=== PATIENT | male | born 1960 | race Caucasian/White ===

== ENCOUNTER 2017-06-26 11:31 | Inpatient (IN) | payer MEDICAID ==
[~2017-06-26] VITALS: Ht 162.6 cm; Wt 65.4 kg
[~2017-06-26 11:31] MED LIST: ATI1T PO; CLIN-80 PO; GUAI120015 PO; HYDR1TAB PO; IBUP-1051 PO; IBUP-1986 PO; IBUP-812 PO; METH-360 PO; NAPR-56 PO; NO HOME MEDS; PERM60CR19 TP
[2017-06-26] MEDS ORDERED: ondansetron/PF 4mg/2ml inj IV ONE (11:50)
[2017-06-26] MEDS ORDERED: normal saline 1000ML IV soln IV ONE (11:50)
[2017-06-26 11:56] LABS: BASOPHILS # (AUTO) 0.1 X10'3 (0-0.2); BASOPHILS % (AUTO) 0.8 % (0-1); EOSINOPHILS # (AUTO) 0.4 X10'3 (0-0.9); EOSINOPHILS % (AUTO) 2.5 % (0-6); HEMATOCRIT 42.2 % (42.0-52.0); HEMOGLOBIN 14.5 g/dl (14.0-17.9); LYMPHOCYTES # (AUTO) 2.2 X10'3 (1.1-4.8); MEAN CORPUSCULAR HGB CONC 34.4 % (33.0-36.5); MEAN CORPUSCULAR VOLUME 96.1 FL (78-98); MONOCYTES # (AUTO) 1.2 X10'3 (0-0.9); MONOCYTES % (AUTO) 6.9 % (2-12); NEUTROPHILS # (AUTO) 13.1 X10'3 (1.8-7.7); NEUTROPHILS % (AUTO) 76.8 % (42-75); PLATELET COUNT 808 X10'3 (140-440); RED BLOOD COUNT 4.39 X10'6 (4.70-6.10); RED CELL DISTRIBUTION WIDTH 13.4 % (11.5-14.5); WHITE BLOOD COUNT 17.1 X10'3 (4.5-11.0)
[2017-06-26 12:07] LABS: PARTIAL THROMBOPLASTIN TIME 31 SECONDS (22-32); PROTHROMBIN TIME 10.7 SECONDS (9.0-12.0)
[2017-06-26 12:11] LABS: ALANINE AMINOTRANSFERASE 49 U/L (12-78); ALBUMIN 2.7 G/DL (3.4-5.0); ALBUMIN/GLOBULIN RATIO 0.5 (1.1-1.5); ALKALINE PHOSPHATASE 92 IU/L (46-116); ANION GAP 5 (8-16); ASPARTATE AMINO TRANSFERASE 21 U/L (10-37); BILIRUBIN,TOTAL 0.4 MG/DL (0.1-1.0); BLOOD UREA NITROGEN 15 MG/DL (7-18); CALCIUM 9.3 MG/DL (8.5-10.1); CHLORIDE 97 MMOL/L (99-107); CREATININE 0.75 MG/DL (0.60-1.10); GLUCOSE 92 MG/DL (70-104); POTASSIUM 3.9 MMOL/L (3.5-5.1); SODIUM 131 MMOL/L (135-145); TOTAL CARBON DIOXIDE 28.6 MMOL/L (24-32); TOTAL PROTEIN 8.6 G/DL (6.4-8.2); eGFR > 90 ML/MIN
[2017-06-26] MEDS ORDERED: ipratropium/albuterol 3ml nebule NEB ONE (12:15)
[2017-06-26] MEDS ORDERED: methylPREDNISolone sod succ 125mg/2ml vial IV ONE (12:15)
[2017-06-26 12:25] LABS: LIPASE 67 U/L (73-393)
[2017-06-26 12:28] LABS: PLATELET ESTIMATE INCREASED; TOTAL CELLS COUNTED 100
[2017-06-26 12:30] LABS: TOXIC GRANULATION 3+; TOXIC VACUOLATION 2+
[2017-06-26] MEDS ORDERED: CefTRIAXone 2gm/NS 100ml IVPB 100 ML IV ONE (13:25)
[2017-06-26] MEDS ORDERED: azithromycin/NS 500mg/250ml 250 ML IV ONE (13:35)
[2017-06-26] MEDS ORDERED: HYDROcodone/acetaminophen 10/325mg tab PO PRN (13:45)
[2017-06-26] MEDS ORDERED: bisacodyl 10mg suppository rectal RC PRN (13:45)
[2017-06-26] MEDS ORDERED: mag hydrox/Alum hydrox/simeth 30ml oral suspension PO PRN (13:45)
[2017-06-26] MEDS ORDERED: diphenhydrAMINE 50 mg/ml inj IV PRN (13:45)
[2017-06-26] MEDS ORDERED: diphenhydrAMINE 25mg capsule PO PRN (13:45)
[2017-06-26] MEDS ORDERED: HYDROcodone/acetaminophen 5mg/325mg tablet PO PRN (13:45)
[2017-06-26] MEDS ORDERED: Permethrin Cream 60gm TP ONE (13:45)
[2017-06-26] MEDS ORDERED: ondansetron/PF 4mg/2ml inj IV PRN (13:45)
[2017-06-26] MEDS ORDERED: metoclopramide 5 mg/ml inj IV PRN (13:45)
[2017-06-26] MEDS ORDERED: nicotine 14mg patch - 24hr TD ONE (13:45)
[2017-06-26] MEDS ORDERED: HYDROmorphone 1 mg/ml syringe IV PRN ×2 (13:45)
[2017-06-26] MEDS ORDERED: LORazepam 1 MG tablet PO PRN (13:45)
[2017-06-26] MEDS ORDERED: acetaminophen 325mg tablet PO PRN ×2 (13:45)
[2017-06-26] MEDS ORDERED: magnesium hydroxide 30ml (MOM) UD suspension PO PRN (13:45)
[2017-06-26] MEDS ORDERED: HYDROcodone/acetaminophen 5mg/325mg tablet PO SCH (14:00)
[2017-06-26] MEDS ORDERED: ACETAMINOPHEN PO SCH ×2 (14:00)
[2017-06-26] MEDS ORDERED: HYDROCODONE PO SCH ×2 (14:00)
[2017-06-26] MEDS: normal saline 1000ml 1,000 ML IV SCH ×2 (14:15→23:20)
[2017-06-26 14:43] LABS: MAGNESIUM 2.2 MG/DL (1.5-2.4); PHOSPHORUS 3.2 MG/DL (2.3-4.5)
[2017-06-26 15:54] LABS: CLARITY,URINE Clear (Clear); COLOR,URINE Yellow (Yellow); GLUCOSE, URINE Negative (Neg); KETONES,URINE 15 mg/dl (Neg); LEUKOCYTE ESTERASE ,URINE Negative (Neg); NITRITES, URINE Negative (Neg); OCCULT BLOOD,URINE Negative (Neg); PROTEIN,URINE Negative (Neg)
[2017-06-26 16:02] LABS: UA COLLECTION TYPE CLN CATCH MIDSTREAM
[2017-06-26 16:04] LABS: URINE AMPHETAMINE SCREEN POSITIVE (Neg); URINE BARBITUATE SCREEN NEGATIVE (Neg); URINE BENZODIAZEPINES SCREEN NEGATIVE (Neg); URINE CANNABINOID SCREEN POSITIVE (Neg); URINE COCAINE SCREEN NEGATIVE (Neg); URINE METHADONE SCREEN NEGATIVE (Neg); URINE OPIATE SCREEN POSITIVE (Neg); URINE PHENCYCLIDINE SCREEN NEGATIVE (Neg)
[2017-06-26 16:30] VITALS: BP 102/66
[2017-06-26 18:40] VITALS: BP 109/61
[2017-06-26] MEDS: heparin, porcine 5000 units/ml vial SQ SCH (20:00)
[2017-06-26] MEDS: methylPREDNISolone sod succ 125mg/2ml vial IV SCH (20:06)
[2017-06-26] MEDS: cefTRIAXone 1g/NS 100ml IVPB 100 ML IV SCH (20:07)
[2017-06-26] MEDS: docusate sod 100mg capsule PO SCH (20:07)
[2017-06-26] MEDS ORDERED: temazepam 15mg capsule PO PRN (21:00)
[2017-06-26] MEDS ORDERED: METHOCARBAMOL PO SCH (21:00)
[2017-06-26] MEDS: cyclobenzaprine 10mg tablet PO SCH (22:45)
[2017-06-27] VITALS: BP 98/57
[2017-06-27 05:16] LABS: BASOPHILS % (AUTO) 0.3 % (0-1); EOSINOPHILS # (AUTO) 0.2 X10'3 (0-0.9); EOSINOPHILS % (AUTO) 1.4 % (0-6); HEMATOCRIT 40.3 % (42.0-52.0); HEMOGLOBIN 13.7 g/dl (14.0-17.9); LYMPHOCYTES # (AUTO) 1.7 X10'3 (1.1-4.8); LYMPHOCYTES % (AUTO) 13.7 % (21-51); MEAN CORPUSCULAR HEMOGLOBIN 33.1 PG (27.0-31.0); MEAN CORPUSCULAR VOLUME 97.4 FL (78-98); MEAN PLATELET VOLUME 6.4 FL (7.4-10.4); MONOCYTES # (AUTO) 0.2 X10'3 (0-0.9); MONOCYTES % (AUTO) 1.9 % (2-12); NEUTROPHILS # (AUTO) 10.2 X10'3 (1.8-7.7); NEUTROPHILS % (AUTO) 82.7 % (42-75); PLATELET COUNT 820 X10'3 (140-440); RED BLOOD COUNT 4.14 X10'6 (4.70-6.10); RED CELL DISTRIBUTION WIDTH 13.6 % (11.5-14.5); WHITE BLOOD COUNT 12.3 X10'3 (4.5-11.0)
[2017-06-27 05:39] LABS: ALANINE AMINOTRANSFERASE 39 U/L (12-78); ALBUMIN 2.2 G/DL (3.4-5.0); ALBUMIN/GLOBULIN RATIO 0.4 (1.1-1.5); ALKALINE PHOSPHATASE 78 IU/L (46-116); ANION GAP 6 (8-16); ASPARTATE AMINO TRANSFERASE 13 U/L (10-37); BILIRUBIN,TOTAL 0.2 MG/DL (0.1-1.0); BLOOD UREA NITROGEN 13 MG/DL (7-18); BUN/CREATININE RATIO 16.9 (5.4-32.0); CALCIUM 8.9 MG/DL (8.5-10.1); CHLORIDE 104 MMOL/L (99-107); CREATININE 0.77 MG/DL (0.60-1.10); GLUCOSE 158 MG/DL (70-104); POTASSIUM 4.6 MMOL/L (3.5-5.1); SODIUM 139 MMOL/L (135-145); TOTAL CARBON DIOXIDE 29.1 MMOL/L (24-32); TOTAL PROTEIN 7.3 G/DL (6.4-8.2); eGFR > 90 ML/MIN
[2017-06-27 07:00] VITALS: BP 99/56
[2017-06-27] MEDS: heparin, porcine 5000 units/ml vial SQ SCH ×2 (08:00→20:00)
[2017-06-27] MEDS: cyclobenzaprine 10mg tablet PO SCH ×3 (08:36→20:49)
[2017-06-27] MEDS: azithromycin 250mg tablet PO SCH (08:36)
[2017-06-27] MEDS: methylPREDNISolone sod succ 125mg/2ml vial IV SCH ×2 (08:36→20:48)
[2017-06-27] MEDS: cefTRIAXone 1g/NS 100ml IVPB 100 ML IV SCH ×2 (08:36→20:48)
[2017-06-27] MEDS: docusate sod 100mg capsule PO SCH ×2 (08:37→20:49)
[2017-06-27] MEDS: pantoprazole 40mg Tablet.DR PO SCH (08:38)
[2017-06-27] MEDS: normal saline 1000ml 1,000 ML IV SCH ×2 (09:45→13:50)
[2017-06-27] MEDS ORDERED: pneumococcal 23-VAL P-sac vacc 25 mcg/0.5ml vial IMVAC ONE (10:00)
[2017-06-27] MEDS: nicotine 21mg patch - 24 hr TD SCH (12:12)
[2017-06-27] MEDS ORDERED: normal saline 1000ml 1,000 ML IVB ONE (12:21)
[2017-06-27 12:41] VITALS: BP 107/58
[2017-06-27 18:40] VITALS: BP 118/70
[2017-06-28] VITALS: BP 113/70
[2017-06-28] MEDS: normal saline 1000ml 1,000 ML IV SCH ×2 (00:15→15:45)
[2017-06-28 05:30] LABS: BASOPHILS # (AUTO) 0.1 X10'3 (0-0.2); BASOPHILS % (AUTO) 0.5 % (0-1); EOSINOPHILS # (AUTO) 0.3 X10'3 (0-0.9); EOSINOPHILS % (AUTO) 1.9 % (0-6); HEMATOCRIT 36.8 % (42.0-52.0); HEMOGLOBIN 12.5 g/dl (14.0-17.9); LYMPHOCYTES # (AUTO) 1.5 X10'3 (1.1-4.8); LYMPHOCYTES % (AUTO) 8.2 % (21-51); MEAN CORPUSCULAR HEMOGLOBIN 33.2 PG (27.0-31.0); MEAN CORPUSCULAR HGB CONC 33.9 % (33.0-36.5); MEAN CORPUSCULAR VOLUME 97.9 FL (78-98); MEAN PLATELET VOLUME 6.5 FL (7.4-10.4); MONOCYTES # (AUTO) 0.5 X10'3 (0-0.9); NEUTROPHILS # (AUTO) 15.9 X10'3 (1.8-7.7); NEUTROPHILS % (AUTO) 86.4 % (42-75); PLATELET COUNT 847 X10'3 (140-440); RED BLOOD COUNT 3.76 X10'6 (4.70-6.10); RED CELL DISTRIBUTION WIDTH 13.4 % (11.5-14.5); WHITE BLOOD COUNT 18.4 X10'3 (4.5-11.0)
[2017-06-28 05:46] LABS: ALANINE AMINOTRANSFERASE 71 U/L (12-78); ALBUMIN 2.2 G/DL (3.4-5.0); ALBUMIN/GLOBULIN RATIO 0.5 (1.1-1.5); ALKALINE PHOSPHATASE 79 IU/L (46-116); ANION GAP 3 (8-16); ASPARTATE AMINO TRANSFERASE 35 U/L (10-37); BILIRUBIN,TOTAL 0.1 MG/DL (0.1-1.0); BLOOD UREA NITROGEN 13 MG/DL (7-18); BUN/CREATININE RATIO 18.6 (5.4-32.0); CALCIUM 8.8 MG/DL (8.5-10.1); CHLORIDE 106 MMOL/L (99-107); GLUCOSE 127 MG/DL (70-104); POTASSIUM 4.1 MMOL/L (3.5-5.1); SODIUM 140 MMOL/L (135-145); TOTAL PROTEIN 6.8 G/DL (6.4-8.2); eGFR > 90 ML/MIN
[2017-06-28 07:02] VITALS: BP 128/68
[2017-06-28] MEDS ORDERED: LACTOBACILLUS RHAMNOSUS GG 15 billion unit sprinkle caps PO SCH (07:30)
[2017-06-28] MEDS: docusate sod 100mg capsule PO SCH (08:23)
[2017-06-28] MEDS: cyclobenzaprine 10mg tablet PO SCH ×2 (08:23→13:28)
[2017-06-28] MEDS: methylPREDNISolone sod succ 125mg/2ml vial IV SCH (08:23)
[2017-06-28] MEDS: cefTRIAXone 1g/NS 100ml IVPB 100 ML IV SCH (08:23)
[2017-06-28] MEDS: azithromycin 250mg tablet PO SCH (08:24)
[2017-06-28] MEDS: pantoprazole 40mg Tablet.DR PO SCH (08:24)
[2017-06-28] MEDS: heparin, porcine 5000 units/ml vial SQ SCH (08:25)
[2017-06-28] MEDS: nicotine 21mg patch - 24 hr TD SCH (08:25)
[2017-06-28] MEDS ORDERED: AZIT-63 PO (17:25)
[2017-06-28] MEDS ORDERED: MAGN400O6 PO (17:28)
[2017-06-28] MEDS ORDERED: PANT40TA4 PO (17:28)
[2017-06-28] MEDS ORDERED: COL100C PO (17:28)
== END 2017-06-28 18:10 | disposition home or self-care (01) | DRG 140 ==
LOC: ER 11:32 → ED HOLD 13:45 → SUR 3N 16:42
PROVIDERS: ADMIT Family Medicine; ATTEND Family Medicine
DX: J44.1 Chronic obstructive pulmonary disease with (acute) exacerbation (principal); J18.9 Pneumonia, unspecified organism; J44.0 Chronic obstructive pulmonary disease with (acute) lower respiratory infection; E87.1 Hypo-osmolality and hyponatremia; K31.9 Disease of stomach and duodenum, unspecified; F12.10 Cannabis abuse, uncomplicated; F17.209 Nicotine dependence, unspecified, with unspecified nicotine-induced disorders; F15.10 Other stimulant abuse, uncomplicated; E86.0 Dehydration; I95.1 Orthostatic hypotension; Z56.0 Unemployment, unspecified; Z59.0 Homelessness; Z79.899 Other long term (current) drug therapy
CPT/HCPCS: 36415; 71045; 74176; 80053; 80305; 81003; 83605; 83690; 83735; 83880; 84100; 84443; 84484; 85025; 85610; 85730; 87040; 87070; 87502; 87503; 94640; 94760; 96361; 96374; 96375; 99285; J0456; J0696; J1170; J1644; J2270; J2405; J2930; J7030

== ENCOUNTER 2018-05-23 23:59 | Emergency (ER) | payer MEDICAID ==
[~2018-05-23] VITALS: Ht 167.6 cm; Wt 70.0 kg
[~2018-05-23 23:59] MED LIST changes: -ATI1T PO; -CLIN-80 PO; +CLIN300C85 PO; +COL100C PO; -GUAI120015 PO; -HYDR1TAB PO; -IBUP-1051 PO; -IBUP-1986 PO; +MAGN400O6 PO; -METH-360 PO; -NAPR-56 PO; -NO HOME MEDS; +PANT40TA4 PO; -PERM60CR19 TP
[2018-05-24 00:06] VITALS: BP 118/72
== END 2018-05-24 00:31 ==
LOC: ER 05-24
DX: S01.21XA Laceration without foreign body of nose, initial encounter (principal); F10.129 Alcohol abuse with intoxication, unspecified; Y90.9 Presence of alcohol in blood, level not specified; J45.909 Unspecified asthma, uncomplicated; Z79.2 Long term (current) use of antibiotics; Z79.899 Other long term (current) drug therapy; Z59.0 Homelessness; Z56.0 Unemployment, unspecified; W45.8XXA Other foreign body or object entering through skin, initial encounter; Y93.89 Activity, other specified; Y92.89 Other specified places as the place of occurrence of the external cause; Y99.8 Other external cause status
CPT/HCPCS: 12011; 99283

== ENCOUNTER 2019-04-16 10:24 | Emergency (ER) | payer MEDICAID, OTHER ==
[~2019-04-16] VITALS: Ht 165.1 cm; Wt 63.0 kg
[~2019-04-16 10:24] MED LIST changes: +CLIN-96 PO; -CLIN300C85 PO
[2019-04-16 10:46] VITALS: BP 119/71
[2019-04-16] MEDS ORDERED: ketorolac tromethamine 15mg/ml inj. IM ONE (12:45)
[2019-04-16] MEDS ORDERED: orphenadrine citrate 60mg/2ml inj. IM ONE (12:45)
[2019-04-16] MEDS ORDERED: METH-360 PO (12:52)
[2019-04-16] MEDS ORDERED: NAPR-56 PO (12:52)
== END 2019-04-16 13:14 | disposition home or self-care (01) ==
LOC: ER 10:26
DX: M54.5 Low back pain (principal); J45.909 Unspecified asthma, uncomplicated; G89.29 Other chronic pain; F17.200 Nicotine dependence, unspecified, uncomplicated; F10.10 Alcohol abuse, uncomplicated; Z56.0 Unemployment, unspecified; Z59.0 Homelessness; Z98.890 Other specified postprocedural states; X50.1XXA Overexertion from prolonged static or awkward postures, initial encounter; Y93.89 Activity, other specified; Y92.89 Other specified places as the place of occurrence of the external cause; Y99.8 Other external cause status; Y90.9 Presence of alcohol in blood, level not specified
CPT/HCPCS: 96372; 99283; J1885; J2360

== ENCOUNTER 2020-01-26 01:39 | Emergency (ER) | payer MEDICAID ==
[~2020-01-26] VITALS: Ht 167.6 cm; Wt 70.5 kg
[~2020-01-26 01:39] MED LIST changes: -CLIN-96 PO; +CLIN-97 PO; +METH-360 PO
[2020-01-26 01:43] VITALS: BP 151/82
[2020-01-26] MEDS ORDERED: PRED20TA PO (02:09)
== END 2020-01-26 02:23 | disposition home or self-care (01) ==
LOC: ER 01:40
DX: R21 Rash and other nonspecific skin eruption (principal); J45.909 Unspecified asthma, uncomplicated; G89.29 Other chronic pain; F15.90 Other stimulant use, unspecified, uncomplicated; Z59.0 Homelessness; Z56.0 Unemployment, unspecified; Z98.890 Other specified postprocedural states; Z79.899 Other long term (current) drug therapy
CPT/HCPCS: 99283

== ENCOUNTER → 2022-03-23 | Emergency (ER) | payer MEDICAID ==
[~2022-03-23] VITALS: Ht 160 cm; Wt 65.9 kg
[~2022-03-23] MED LIST changes: +AMOX-117 PO; +NAPR-56 PO; -PANT40TA4 PO; +PANT40TA54 PO; +acetaminophen 325mg tablet PO ONE; +ibuprofen tablet 400 MG TABLET PO ONE
[2022-03-23 14:19] VITALS: BP 112/60
== END | disposition home or self-care (01) ==
LOC: ER 13:30
DX: H66.91 Otitis media, unspecified, right ear (principal); H92.01 Otalgia, right ear; J02.9 Acute pharyngitis, unspecified; J45.909 Unspecified asthma, uncomplicated; G89.29 Other chronic pain; F15.90 Other stimulant use, unspecified, uncomplicated; Z98.890 Other specified postprocedural states; Z72.89 Other problems related to lifestyle; Z56.0 Unemployment, unspecified; Z59.00 Homelessness unspecified; Z79.2 Long term (current) use of antibiotics; Z79.899 Other long term (current) drug therapy
CPT/HCPCS: 99283

== ENCOUNTER 2022-04-05 15:19 | Emergency (ER) | payer MEDICAID ==
[~2022-04-05] VITALS: Ht 157.5 cm; Wt 66.4 kg
[~2022-04-05 15:19] MED LIST changes: -AMOX-117 PO; -acetaminophen 325mg tablet PO ONE; -ibuprofen tablet 400 MG TABLET PO ONE
[2022-04-05 15:24] VITALS: BP 91/64
[2022-04-05] MEDS ORDERED: ibuprofen tablet 400 MG TABLET PO ONE (17:00)
[2022-04-05] MEDS ORDERED: Cipro HC otic suspension 10ML bottle RIGHT EAR ONE (20:00)
== END 2022-04-05 17:23 | disposition home or self-care (01) ==
LOC: ER 15:20
DX: H60.501 Unspecified acute noninfective otitis externa, right ear (principal); G89.29 Other chronic pain; M54.9 Dorsalgia, unspecified; J45.909 Unspecified asthma, uncomplicated; F15.10 Other stimulant abuse, uncomplicated; Z59.00 Homelessness unspecified; Z56.0 Unemployment, unspecified; Z79.899 Other long term (current) drug therapy; Z79.2 Long term (current) use of antibiotics
CPT/HCPCS: 99283

== ENCOUNTER 2022-04-07 18:06 | Emergency (ER) | payer MEDICAID ==
[~2022-04-07] VITALS: Ht 160 cm; Wt 6.6 kg
[2022-04-07 18:09] VITALS: BP 138/70
[2022-04-07 18:40] LABS: EOSINOPHILS # (AUTO) 0.5 X10'3 (0-0.9); EOSINOPHILS % (AUTO) 3.9 % (0-6); LYMPHOCYTES # (AUTO) 2.5 X10'3 (1.1-4.8); MONOCYTES # (AUTO) 0.8 X10'3 (0-0.9); RED CELL DISTRIBUTION WIDTH 13.8 % (11.5-14.5)
[2022-04-07 18:41] LABS: BASOPHILS # (AUTO) 0.1 X10'3 (0-0.2); BASOPHILS % (AUTO) 1.1 % (0-1); HEMATOCRIT 34.1 % (42.0-52.0); HEMOGLOBIN 11.8 g/dl (14.0-17.9); LYMPHOCYTES % (AUTO) 20.4 % (21-51); MEAN CORPUSCULAR HEMOGLOBIN 32.5 PG (27.0-31.0); MEAN CORPUSCULAR HGB CONC 34.6 g/dL (33.0-36.5); MEAN CORPUSCULAR VOLUME 94.1 FL (78-98); MEAN PLATELET VOLUME 5.9 FL (7.4-10.4); MONOCYTES % (AUTO) 6.9 % (2-12); NEUTROPHILS # (AUTO) 8.2 X10'3 (1.8-7.7); NEUTROPHILS % (AUTO) 67.7 % (42-75); PLATELET COUNT 868 X10'3 (140-440); RED BLOOD COUNT 3.63 X10'6 (4.70-6.10); WHITE BLOOD COUNT 12.2 X10'3 (4.5-11.0)
[2022-04-07 18:54] LABS: ALANINE AMINOTRANSFERASE 27 U/L (12-78); ALBUMIN 2.8 G/DL (3.4-5.0); ALBUMIN/GLOBULIN RATIO 0.6 (1.1-1.5); ALKALINE PHOSPHATASE 87 IU/L (46-116); ANION GAP 8 (8-16); ASPARTATE AMINO TRANSFERASE 18 U/L (10-37); BILIRUBIN,TOTAL 0.2 MG/DL (0.1-1.0); BLOOD UREA NITROGEN 10 MG/DL (7-18); BUN/CREATININE RATIO 14.5 (5.4-32.0); CALCIUM 9.6 MG/DL (8.5-10.1); CHLORIDE 98 MMOL/L (99-107); CREATININE 0.69 MG/DL (0.60-1.10); GLUCOSE 137 MG/DL (70-104); POTASSIUM 3.8 MMOL/L (3.5-5.1); SODIUM 136 MMOL/L (135-145); TOTAL CARBON DIOXIDE 29.9 MMOL/L (24-32); TOTAL PROTEIN 7.7 G/DL (6.4-8.2); eGFR > 90 ML/MIN
--- NOTE | 2022-04-07 19:45 | NUR ---
PT IS RESTING QUIETLY ON GURNEY, HAS BEEN EVALUATED BY PROVIDER, PT C/O LUQ ABD PAIN RADIATING TO LEFT LOWER CHEST "SHARP", STARTED AT 0800 TODAY, +NAUSEA, NO VOMITING, PT ADMITS TO USING "VERY SMALL AMOUNT"METH 2 DAYS AGO, DRINKS 2-3 BEERS A DAY "BUT I HAVE CUT DOWN THIS LAST MONTH", SMOKED MARIJUANA AND CIGARETTES,
[2022-04-07] MEDS ORDERED: azithromycin 250mg tablet PO ONE (19:50)
[2022-04-07] MEDS ORDERED: AZIT-83 PO (19:52)
[2022-04-07] MEDS ORDERED: DOXY100C76 PO (19:52)
[2022-04-07] MEDS ORDERED: DOXYCYCLINE 100MG CAPSULE PO STA (19:56)
--- NOTE | 2022-04-07 20:13 | NUR ---
PO MED X2 GIVEN
== END 2022-04-07 20:14 | disposition home or self-care (01) ==
LOC: ER 18:07
DX: J18.9 Pneumonia, unspecified organism (principal); R10.12 Left upper quadrant pain; R07.89 Other chest pain; R06.02 Shortness of breath; J45.909 Unspecified asthma, uncomplicated; G89.29 Other chronic pain; F15.90 Other stimulant use, unspecified, uncomplicated; Z98.890 Other specified postprocedural states; Z72.89 Other problems related to lifestyle; Z56.0 Unemployment, unspecified; Z59.00 Homelessness unspecified
CPT/HCPCS: 36415; 71045; 80053; 83880; 84484; 85025; 93005; 99285

== ENCOUNTER 2022-07-02 14:56 | Emergency (ER) | payer MEDICAID ==
[~2022-07-02] VITALS: Ht 160 cm; Wt 51.0 kg
[~2022-07-02 14:56] MED LIST changes: -NAPR-56 PO
[2022-07-02] MEDS ORDERED: acetaminophen 325mg tablet PO ONE (15:05)
--- NOTE | 2022-07-02 16:45 | NUR ---
TEMP REDUCTION NOTED TO CHART VS. PT LAYING IN POSITION OF COMFORT. RESP EVEN UNLABORED.
[2022-07-02] MEDS ORDERED: azithromycin 250mg tablet PO ONE (17:35)
[2022-07-02] MEDS ORDERED: AZIT-31 PO ×3 (17:44→18:02)
[2022-07-02] MEDS ORDERED: NEOM10DR45 RIGHT EAR ×3 (17:44→18:02)
[2022-07-02 17:49] VITALS: BP 101/59
== END 2022-07-02 18:05 | disposition home or self-care (01) ==
LOC: ER 14:57
DX: J06.9 Acute upper respiratory infection, unspecified (principal); H60.91 Unspecified otitis externa, right ear; J45.909 Unspecified asthma, uncomplicated; G89.29 Other chronic pain; M54.50 Low back pain, unspecified; F15.20 Other stimulant dependence, uncomplicated; Z56.0 Unemployment, unspecified; Z59.00 Homelessness unspecified
CPT/HCPCS: 71045; 99283

== ENCOUNTER 2022-10-20 19:15 | Emergency (ER) | payer MEDICAID ==
[~2022-10-20] VITALS: Ht 165.1 cm; Wt 75.0 kg
[~2022-10-20 19:15] MED LIST changes: +AZIT-31 PO; +NEOM10DR45 RIGHT EAR
--- NOTE | 2022-10-20 19:28 | NUR ---
,ohlfs at bedside assessing patient, patient placed on 2l nc of oxygen due to destat to low 90%'s
--- NOTE | 2022-10-20 19:57 | NUR ---
provided patient 2 sandwiches and water patient no need for o2 nc saturation 96% on ra
[2022-10-20 20:02] VITALS: BP 150/82
[2022-10-20] MEDS ORDERED: NEOM10DR45 RIGHT EAR (20:23)
== END 2022-10-20 20:39 | disposition home or self-care (01) ==
LOC: ER 19:16
DX: F10.129 Alcohol abuse with intoxication, unspecified (principal); H60.91 Unspecified otitis externa, right ear; J45.909 Unspecified asthma, uncomplicated; F15.20 Other stimulant dependence, uncomplicated; Z59.00 Homelessness unspecified; Z56.0 Unemployment, unspecified; Y90.9 Presence of alcohol in blood, level not specified
CPT/HCPCS: 71045; 93005; 99283

== ENCOUNTER 2022-10-30 02:47 | Emergency (ER) | payer MEDICAID ==
[~2022-10-30] VITALS: Ht 167.6 cm; Wt 58.3 kg
[2022-10-30] MEDS ORDERED: buprenorphine/naloxone 8MG-2MG SUBlingual film SL SCH (04:55)
[2022-10-30] MEDS ORDERED: buprenorphine/naloxone 2-0.5mg sublingual tablet SL SCH (05:55)
[2022-10-30 06:24] VITALS: BP 124/79
== END 2022-10-30 06:26 | disposition home or self-care (01) ==
LOC: ER 02:48
DX: F11.23 Opioid dependence with withdrawal (principal); R68.83 Chills (without fever); J45.909 Unspecified asthma, uncomplicated; F17.200 Nicotine dependence, unspecified, uncomplicated; F15.20 Other stimulant dependence, uncomplicated; Z59.00 Homelessness unspecified; Z56.0 Unemployment, unspecified
CPT/HCPCS: 99282

== ENCOUNTER 2023-12-24 16:07 | Emergency (ER) | payer MEDICAID ==
[~2023-12-24] VITALS: Ht 162.6 cm; Wt 58.8 kg
[2023-12-24 16:08] VITALS: BP 122/71; PULSE 75; TEMP 98; O2SAT 98
[2023-12-24] MEDS: dexamethasone sod phosphate 10mg/ml inj IM STA (17:32)
[2023-12-24] MEDS: diphenhydrAMINE 50 mg/ml inj IM ONE (17:32)
[2023-12-24] MEDS: famotidine 20mg tablet PO ONE (17:32)
[2023-12-24 17:34] VITALS: RESP 18
[2023-12-24] MEDS ORDERED: FAMO-129 PO (17:39)
== END 2023-12-24 17:35 | disposition home or self-care (01) ==
LOC: ER 16:08
DX: T14.8XXA Other injury of unspecified body region, initial encounter (principal); J45.909 Unspecified asthma, uncomplicated; F15.90 Other stimulant use, unspecified, uncomplicated; Z79.2 Long term (current) use of antibiotics; Z79.1 Long term (current) use of non-steroidal anti-inflammatories (NSAID); Z79.899 Other long term (current) drug therapy; W57.XXXA Bitten or stung by nonvenomous insect and other nonvenomous arthropods, initial encounter; Y93.89 Activity, other specified; Y92.89 Other specified places as the place of occurrence of the external cause; Y99.8 Other external cause status
CPT/HCPCS: 96372; 99284; J1100; J1200

== ENCOUNTER 2024-06-28 14:22 | Emergency (ER) | payer MEDICAID ==
[~2024-06-28] VITALS: Ht 162.6 cm; Wt 65.9 kg
[~2024-06-28 14:22] MED LIST changes: -AZIT-31 PO; +AZIT250T89 PO; +FAMO-129 PO
[2024-06-28 14:23] VITALS: BP 120/81; PULSE 98; TEMP 98.2; O2SAT 97
[2024-06-28] MEDS ORDERED: CEPH-585 PO (16:05)
[2024-06-28 16:30] VITALS: RESP 16
== END 2024-06-28 16:49 | disposition home or self-care (01) ==
LOC: ER 14:22
DX: S61.412A Laceration without foreign body of left hand, initial encounter (principal); S61.239A Puncture wound without foreign body of unspecified finger without damage to nail, initial encounter; J45.909 Unspecified asthma, uncomplicated; F15.90 Other stimulant use, unspecified, uncomplicated; Z98.890 Other specified postprocedural states; W54.0XXA Bitten by dog, initial encounter; Y93.89 Activity, other specified; Y92.89 Other specified places as the place of occurrence of the external cause; Y99.8 Other external cause status
CPT/HCPCS: 73130; 99283; J7030; A6258

== ENCOUNTER 2024-07-01 14:13 | Emergency (ER) | payer MEDICAID ==
[~2024-07-01] VITALS: Ht 160 cm; Wt 65.0 kg
[~2024-07-01 14:13] MED LIST changes: +CEPH-585 PO
[2024-07-01 14:29] VITALS: TEMP 98.6
[2024-07-01] MEDS: piperacillin/tazo 3.375gm/50ml 50 ML IV ONE (18:39)
[2024-07-01] MEDS: normal saline 1000ML IV soln IV ONE (18:39)
[2024-07-01] MEDS: vancomycin/NS 1 GM ADD-VANTAGE 250 ML IV ONE (18:39)
[2024-07-01] MEDS ORDERED: iohexol 300mg/ml 100ml inj. ONE (18:45)
[2024-07-01 18:56] LABS: BASOPHILS # (AUTO) 0.1 X10'3 (0-0.2); BASOPHILS % (AUTO) 0.9 % (0-1); EOSINOPHILS # (AUTO) 0.9 X10'3 (0-0.9); EOSINOPHILS % (AUTO) 8.1 % (0-6); HEMATOCRIT 34.7 % (42.0-52.0); HEMOGLOBIN 11.8 g/dl (14.0-17.9); LYMPHOCYTES # (AUTO) 1.7 X10'3 (1.1-4.8); LYMPHOCYTES % (AUTO) 14.7 % (21-51); MEAN CORPUSCULAR HEMOGLOBIN 31.4 PG (27.0-31.0); MEAN CORPUSCULAR HGB CONC 34.1 g/dL (33.0-36.5); MEAN PLATELET VOLUME 6.8 FL (7.4-10.4); MONOCYTES # (AUTO) 0.8 X10'3 (0-0.9); MONOCYTES % (AUTO) 7.5 % (2-12); NEUTROPHILS # (AUTO) 7.7 X10'3 (1.8-7.7); NEUTROPHILS % (AUTO) 68.8 % (42-75); PLATELET COUNT 404 X10'3 (140-440); RED BLOOD COUNT 3.78 X10'6 (4.70-6.10); WHITE BLOOD COUNT 11.3 X10'3 (4.5-11.0)
[2024-07-01 19:18] LABS: ALBUMIN 3.1 G/DL (3.4-5.0); ANION GAP 7 (8-16); BLOOD UREA NITROGEN 16 MG/DL (7-18); BUN/CREATININE RATIO 21.1 (10.0-20.0); CALCIUM 8.9 MG/DL (8.5-10.1); CHLORIDE 100 MMOL/L (99-107); CREATININE 0.76 MG/DL (0.60-1.10); GLUCOSE 91 MG/DL (70-104); MAGNESIUM 1.8 MG/DL (1.5-2.4); POTASSIUM 3.8 MMOL/L (3.5-5.1); SODIUM 137 MMOL/L (135-145); TOTAL CARBON DIOXIDE 30.5 MMOL/L (24-32); eCRCL 79 ML/MIN; eGFR > 90 ML/MIN
[2024-07-01 19:43] LABS: BILIRUBIN,URINE NEGATIVE (Neg); CLARITY,URINE CLEAR (Clear); COLOR,URINE YELLOW (Yellow); GLUCOSE, URINE NEGATIVE (Neg); KETONES,URINE NEGATIVE (Neg); LEUKOCYTE ESTERASE ,URINE NEGATIVE (Neg); NITRITES, URINE NEGATIVE (Neg); OCCULT BLOOD,URINE TRACE-INTACT (Neg); PROTEIN,URINE NEGATIVE (Neg)
[2024-07-01 19:48] LABS: UA COLLECTION TYPE NON-SPECIFIED
[2024-07-01 19:49] LABS: BACTERIA,URINE FEW /HPF (Neg); RBC,URINE 0-2 /HPF (0-2); SQUAMOUS EPITHELIAL CELL,UR FEW /LPF (FEW); WBC,URINE 0-4 /HPF (0-4)
[2024-07-01] MEDS ORDERED: DOXY-460 PO (19:54)
[2024-07-01 20:30] VITALS: BP 133/63; PULSE 82; RESP 16; O2SAT 100
== END 2024-07-01 21:45 | disposition home or self-care (01) ==
LOC: ER 14:13
DX: L03.114 Cellulitis of left upper limb (principal); J45.909 Unspecified asthma, uncomplicated; F15.90 Other stimulant use, unspecified, uncomplicated; F10.90 Alcohol use, unspecified, uncomplicated; Y90.9 Presence of alcohol in blood, level not specified
CPT/HCPCS: 36415; 71045; 80048; 81001; 83605; 83735; 84145; 85025; 87040; 93005; 96365; 96366; 96368; 99285; J2543; J3370; J7030; A6258; Q9967